=== PATIENT | female | born 1950 | race African-American/Black ===

== ENCOUNTER 2024-05-16 07:37 | Emergency (ER) | payer MEDICARE, OTHER ==
[~2024-05-16] VITALS: Ht 160 cm; Wt 11.8 kg
[2024-05-16 07:51] VITALS: BP 182/75; PULSE 66; RESP 18; TEMP 98.3; O2SAT 100
[2024-05-16] MEDS ORDERED: CETI-450 PO (07:59)
[2024-05-16] MEDS ORDERED: VIBE75TA PO (07:59)
[2024-05-16] MEDS ORDERED: NIFE10CA50 PO (07:59)
[2024-05-16] MEDS ORDERED: CITA-144 PO (07:59)
[2024-05-16] MEDS ORDERED: APIX5TAB PO (07:59)
[2024-05-16] MEDS ORDERED: ROSU20TA98 PO (07:59)
[2024-05-16] MEDS ORDERED: METO-325 PO (07:59)
[2024-05-16] MEDS ORDERED: AREDS 2 PO (07:59)
[2024-05-16] MEDS ORDERED: SOLI5 PO (07:59)
[2024-05-16] MEDS ORDERED: EPLE25TA24 PO (07:59)
[2024-05-16] MEDS ORDERED: OXYC-38 PO (09:11)
[2024-05-16] MEDS: OxyCODONE HCL/ACETAMINOPHEN 5-325 MG TABLET PO ONE (09:14)
== END 2024-05-16 09:21 | disposition home or self-care (01) ==
LOC: EMS 07:37
DX: M25.551 Pain in right hip (principal); G89.29 Other chronic pain; E78.00 Pure hypercholesterolemia, unspecified; I10 Essential (primary) hypertension; I48.91 Unspecified atrial fibrillation; Z90.710 Acquired absence of both cervix and uterus; Z79.01 Long term (current) use of anticoagulants
CPT/HCPCS: 73502; 99283